=== PATIENT | male | born 1995 | race Caucasian/White ===

== ENCOUNTER 2020-09-23 16:18 | Emergency (ER) | payer SELFPAY ==
[~2020-09-23] VITALS: Ht 172 cm; Wt 82.0 kg
--- NOTE | 2020-09-23 16:26 | ED Integumentary General ---
General Chief Complaint: Skin/Wound Problems Stated Complaint: PAINFUL BUMP ON CHEST Source: patient Exam Limitations: no limitations History of Present Illness Date Seen by Provider: Sep 23, 2020 Time Seen by Provider: 16:26 Initial Comments 25-year-old male presents with a painful cyst/bump on his left chest wall. Patient reports his been there for years. Couple months ago he went to urgent care who lanced it and had some blood and white substance come out of it. Reports that since then his gotten progressively more painful. He does have some mild increase in size. He presents because he was unsure of where to go to get it treated. There is no increased erythema drainage. He reports significant increase in pain. Allergies and Home Medications Patient Home Medication List Home Medication List Reviewed: Yes Review of Systems Review of Systems Constitutional: No chills, No fever EENTM: no symptoms reported Respiratory: no symptoms reported Cardiovascular: no symptoms reported Gastrointestinal: no symptoms reported Genitourinary: no symptoms reported Musculoskeletal: no symptoms reported Skin: see HPI Psychiatric/Neurological: No Symptoms Reported Past [id number]-[id number]-[id number] Hx Past Med/Social Hx: Reviewed Nursing Past Med/Soc Hx Patient Social History Recent Foreign Travel: No Contact w/Someone Who Travel: No Physical Exam Vital Signs Vital Signs - First Documented 09/23/20 16:29 Temp 36.6 Pulse 82 Resp 14 B/P (MAP) 118/76 (90) Pulse Ox 99 O2 Delivery Room Air Capillary Refill : General Appearance: WD/WN, no apparent distress Neck: normal inspection Cardiovascular: normal peripheral pulses, regular rate, rhythm Respiratory: lungs clear, normal breath sounds Gastrointestinal: non tender, soft Extremities: normal range of motion, non-tender Skin: other (an approximate 2-1/2-3 cm cyst with an incision throughout the middle of it. No signs of inflammation or infection. Painful to palpation. Located on the left chest wall) Progress/Results/Core Measures Results/Orders Vital Signs/I&O 09/23/20 16:29 Temp 36.6 Pulse 82 Resp 14 B/P (MAP) 118/76 (90) Pulse Ox 99 O2 Delivery Room Air Departure Impression Primary Impression: Cyst Disposition: 01 HOME, SELF-CARE Condition: Stable Departure-Patient Inst. Referrals: ANTONETTE CASE MD NO,LOCAL PHYSICIAN (PCP) Primary Care Physician Patient Instructions: Epidermal Cyst (DC) Add. Discharge Instructions: Follow-up with general surgery for an appointment for removal and further treatment All discharge instructions reviewed with patient and/or family. Voiced understanding. WES LYNCH DO Sep 23, 2020 16:26
[2020-09-23 16:29] VITALS: BP 118/76
== END 2020-09-23 16:37 | disposition home or self-care (01) ==
LOC: ER FS 16:21
DX: R22.2 Localized swelling, mass and lump, trunk (principal)
CPT/HCPCS: 99282